=== PATIENT | male | born 1995 | race Hispanic/Latino ===

== ENCOUNTER 2020-02-22 12:34 | Emergency (ER) | payer SELFPAY ==
[2020-02-22] MEDS ORDERED: LIDOCAINE 1% MPF 5 ML VIAL ONE (13:24)
[2020-02-22] MEDS ORDERED: TETANUS & DIPHTHERIA TOX,ADULT 0.5 ML VIAL ONE (13:25)
--- NOTE | 2020-02-22 14:37 | RAD REPORT ---
EXAM DESCRIPTION: RAD - Nasal Bones - 02/22/2020 2:31 pm CLINICAL HISTORY: Nasal pain status post trauma FINDINGS: No fracture seen
--- NOTE | 2020-02-22 14:54 | ER ---
Nurse's Notes [facility] Name: Travis Negrete Age: 24 yrs Sex: Male : 1995 Arrival Date: 02/22/2020 Time: 12:37 Bed 24 Private MD: Diagnosis: Laceration without foreign body of nose Presentation: 02/21 12:44 Chief complaint: Patient states: <1 cm laceration to bridge of nose. 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 Bleeding controlled, no LOC. Coronavirus screen: Client denies travel out of the [place] in the last 14 days. At this time, the client does not indicate any symptoms associated with coronavirus-19. Ebola Screen: Patient denies travel to an Ebola-affected area in the 21 days before illness onset. Complicating Factors: There are no complicating factors for this patient. Initial Sepsis Screen: Does the patient meet any 2 criteria? No. Patient's initial sepsis screen is negative. Risk Assessment: Do you want to hurt yourself or someone else? Patient reports no desire to harm self or others. Onset of symptoms was February 22, 2020. 12:44 Method Of Arrival: Ambulatory ll1 12:44 Acuity: NAPOLEON 4 ll1 Historical: - Allergies: 12:46 No Known Allergies; ll1 - PSHx: 12:46 None; ll1 - Immunization history:: Last tetanus immunization: unknown. - Social history:: Smoking status: Patient denies any tobacco usage or history of. Patient uses alcohol, only on a social basis. Patient/guardian denies using street drugs. Screenin:13 Abuse screen: Denies threats or abuse. Denies injuries from another. Nutritional hb screening: No deficits noted. Tuberculosis screening: No symptoms or risk factors identified. Fall Risk None identified. Assessment: 13:02 General: Appears in no apparent distress. Behavior is calm, cooperative. Pain: Pain hb currently is 4 out of 10 on a pain scale. Neuro: Level of Consciousness is awake, alert, obeys commands, Oriented to person, place, time, situation. Cardiovascular: Capillary refill < 3 seconds Patient's skin is warm and dry. Respiratory: Respiratory effort is even, unlabored, Respiratory pattern is regular, symmetrical. GI: No signs and/or symptoms were reported involving the gastrointestinal system. : No signs and/or symptoms were reported regarding the genitourinary system. EENT: No signs and/or symptoms were reported regarding the EENT system. Derm: Skin is pink, warm \T\ dry. Musculoskeletal: No signs and/or symptoms reported regarding the musculoskeletal system. Injury Description: Laceration sustained to bridge of nose is <0.5 cm, bleeding controlled. 14:00 Reassessment: Patient appears in no apparent distress at this time. Patient and/or hb family updated on plan of care and expected duration. Pain level reassessed. Patient is alert, oriented x 3, equal unlabored respirations, skin warm/dry/pink. 15:00 Reassessment: Patient appears in no apparent distress at this time. Patient and/or hb family updated on plan of care and expected duration. Pain level reassessed. Patient is alert, oriented x 3, equal unlabored respirations, skin warm/dry/pink. Vital Signs: 12:44 BP 125 / 80; Pulse 60; Resp 16; Temp 98.9; Pulse Ox 100% ; Pain 4/10; ll1 14:30 BP 126 / 76; Pulse 61; Resp 16; Pulse Ox 100% on R/A; hb ED Course: 12:37 Patient arrived in ED. mr 12:45 Didier Aguilar PA is PHCP. cp 12:45 Donal Siddiqui MD is Attending Physician. cp 12:45 Triage completed. ll1 12:46 Arm band placed on Patient placed in an exam room, on a stretcher. ll1 13:13 Patient has correct armband on for positive identification. Bed in low position. Call hb light in reach. 13:17 Nimo Coleman, CINTHIA is Primary Nurse. ll1 14:27 XRAY Nasal Bones In Process Unspecified. EDMS 15:02 No provider procedures requiring assistance completed. Patient did not have IV access hb during this emergency room visit. 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 Exp: ll1 08/14/2021. Lot #: [id number]. } Route: IM; Site: left deltoid; Outcome: 14:54 Discharge ordered by . cp 15:14 Patient left the ED. hb Signatures: Dispatcher [employer] [facility] Francoise Barnes mr Page, DidierSAADIA vigil cp, Heather, RN RN hb Nimo Coleman, RN RN ll1
--- NOTE | 2020-02-22 14:54 | EDPHYS ---
Physician Documentation [facility] Name: Travis Negrete Age: 24 yrs Sex: Male : 1995 Arrival Date: 02/22/2020 Time: 12:37 Bed 24 Private MD: ED Physician Donal Siddiqui HPI: 02/21 13:15 This 24 yrs old Male presents to ER via Ambulatory with complaints of cp Laceration To Nose. 13:15 The patient has a laceration occurred at a friend's home, The injury was accidental. cp The laceration(s) is(are) located on the nose. 13:15 Onset: The symptoms/episode began/occurred 1 hour(s) ago. cp 13:15 Associated signs and symptoms: Pertinent negatives: dizziness, heavy bleeding, loss of cp consciousness, suspected foreign body. Patient reports nose was struck by piece of metal . Historical: - Allergies: 12:46 No Known Allergies; ll1 - PSHx: 12:46 None; ll1 - Immunization history:: Last tetanus immunization: unknown. - Social history:: Smoking status: Patient denies any tobacco usage or history of. Patient uses alcohol, only on a social basis. Patient/guardian denies using street drugs. ROS: 13:20 Constitutional: Negative for chills, fever. cp 13:20 Neck: Negative for pain with movement, pain at rest, stiffness. cp 13:20 Skin: Positive for laceration(s), of the bridge of nose. 13:20 Neuro: Negative for headache, loss of consciousness. 13:20 All other systems are negative. Exam: 13:25 Constitutional: The patient appears in no acute distress, alert, awake, comfortable, cp well developed, well nourished. 13:25 Head/face: Noted is a laceration(s), that is linear, of the bridge of nose, swelling, cp that is mild, of the nose, tenderness, that is mild, of the nose, Sinus tenderness, is not appreciated. 13:25 Eyes: Periorbital structures: appear normal, Pupils: equal, round, and reactive to light and accomodation, Extraocular movements: intact throughout, Conjunctiva: normal, no exudate, no injection, Lids and lashes: appear normal, bilaterally. 13:25 ENT: External ear(s): are unremarkable, Nose: Nasal septum: is midline, no septal hematoma appreciated, bleeding, is not appreciated, Mouth: Lips: moist, Oral mucosa: moist, Posterior pharynx: Airway: no evidence of obstruction, patent, Dental exam: no acute changes. 13:25 Neck: C-spine: vertebral tenderness, is not appreciated, crepitus, is not appreciated, ROM/movement: pain, is not appreciated, limited range of motion, is not appreciated. 13:25 Chest/axilla: Inspection: normal. 13:25 Cardiovascular: Rate: normal. 13:25 Respiratory: the patient does not display signs of respiratory distress, Respirations: normal. 13:25 Skin: injury, laceration(s), the wound is approximately 2 cm(s), of the bridge of nose, that can be described as clean, no foreign body, linear, with mild bleeding. 13:25 Neuro: Orientation: to person, place \T\ time. Mentation: is normal, Motor: moves all fours, strength is normal, Gait: is steady. Vital Signs: 12:44 BP 125 / 80; Pulse 60; Resp 16; Temp 98.9; Pulse Ox 100% ; Pain 4/10; ll1 14:30 BP 126 / 76; Pulse 61; Resp 16; Pulse Ox 100% on R/A; hb Laceration: 14:55 Wound Repair of 2cm ( 0.8in ) subcutaneous laceration to bridge of nose. Linear cp shaped.. Distal neuro/vascular/tendon intact. Anesthesia: Local anesthetic administered with 3 mls of 1% lidocaine. Wound prep: Simple cleansing by nurse. Skin closed with 3 6-0 Prolene using simple sutures and sterile technique. Dressed with Bacitracin, bandaid. Patient tolerated well. MDM: 13:07 Patient medically screened. cp 14:54 Data reviewed: vital signs, nurses notes, radiologic studies, plain films. cp 14:54 Differential diagnosis: superficial laceration, nasal bone fracture. Counseling: I had cp a detailed discussion with the patient and/or guardian regarding: the historical points, exam findings, and any diagnostic results supporting the discharge/admit diagnosis, radiology results, to return to the emergency department if symptoms worsen or persist or if there are any questions or concerns that arise at home. Response to treatment: the patient's symptoms have markedly improved after treatment. 02/21 13:09 Order name: XRAY Nasal Bones; Complete Time: 14:53 02/21 14:53 Interpretation: Report reviewed. 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 Exp: ll1 08/14/2021. Lot #: [id number]. } Route: IM; Site: left deltoid; Disposition: 15:15 Chart complete. Disposition: 02/22/20 14:54 Discharged to Home. Impression: Laceration without foreign body of nose. - Condition is Stable. - Discharge Instructions: Facial Laceration. - Medication Reconciliation Form, Thank You Letter, Antibiotic Education, Prescription Opioid Use form. - Follow up: Private Physician; When: 1 week; Reason: Staple/Suture removal. - Problem is new. - Symptoms have improved. Addendum: 02/23/2020 19:47 Co-signature as Attending Physician, Donal Siddiqui MD I agree with the assessment and k dr plan of care. Signatures: Dispatcher [employer] EDKS Donal Siddiqui MD MD [facility] Didier Aguilar PA PA Machelle Coffey RN RN Nimo Coleman RN RN ll1 Corrections: (The following items were deleted from the chart) 02/21 15:14 14:54 02/22/2020 14:54 Discharged to Home. Impression: Laceration without foreign body hb of nose. Condition is Stable. Forms are Medication Reconciliation Form, Thank You Letter, Antibiotic Education, Prescription Opioid Use. Follow up: Private Physician; When: 1 week; Reason: Staple/Suture removal. Problem is new. Symptoms have improved. cp
== END 2020-02-22 15:14 | disposition home or self-care (01) ==
LOC: ER 12:34
PROC: 0JQ10ZZ Repair Face Subcutaneous Tissue and Fascia, Open Approach (ICD-10-PCS; principal; 2020-02-22)
DX: S01.21XA Laceration without foreign body of nose, initial encounter (principal); W22.8XXA Striking against or struck by other objects, initial encounter; Y93.9 Activity, unspecified; Y92.89 Other specified places as the place of occurrence of the external cause; Z23 Encounter for immunization
CPT/HCPCS: 70160; 90471; 90714; 99283

== ENCOUNTER 2020-03-01 10:11 | Emergency (ER) | payer SELFPAY ==
--- NOTE | 2020-03-01 10:25 | EDPHYS ---
Physician Documentation [facility] Name: Travis Negrete Age: 24 yrs Sex: Male : 1995 Arrival Date: 03/01/2020 Time: 10:13 Bed 20 Private MD: ED Physician Elio Baptiste HPI: 03/01 10:18 This 24 yrs old Male presents to ER via Ambulatory with complaints of Suture jmm Removal. 10:18 The patient has sutures on the nose. Sutures/elsa progress: The patient has no jmm c/o's. The wound is well-healing with no redness, swelling, discharge, or dehiscence reported. The patient has experienced a previous episode. Historical: - Allergies: 10:19 No Known Allergies; iw - Home Meds: 10:19 None [Active]; iw - PMHx: 10:19 None; iw - PSHx: 10:19 None; iw - Immunization history:: Adult Immunizations. - Social history:: Smoking status: . ROS: 10:18 Constitutional: Negative for fever, chills, and weight loss, Cardiovascular: Negative jmm for chest pain, palpitations, and edema, Respiratory: Negative for shortness of breath, cough, wheezing, and pleuritic chest pain, Skin: Negative for injury, rash, and discoloration. 10:18 All other systems are negative. Exam: 10:18 Constitutional: This is a well developed, well nourished patient who is awake, alert, jmm and in no acute distress. Head/Face: atraumatic. Eyes: EOMI, no conjunctival erythema appreciated 10:18 Neck: Trachea midline, Supple Chest/axilla: Normal chest wall appearance and motion. Cardiovascular: Regular rate and rhythm. No edema appreciated Respiratory: Normal respirations, no respiratory distress appreciated Abdomen/GI: Non distended, soft Back: Normal ROM Skin: General appearance color normal MS/ Extremity: Moves all extremities, no obvious deformities appreciated, no edema noted to the lower extremities Neuro: Awake and alert, normal gait Psych: Behavior is normal, Mood is normal, Patient is cooperative and pleasant 10:18 ENT: 3 sutures noted to the bridge of the nose. skin appears well healed. no erythema, purulent drainage appreciated. Vital Signs: 10:18 BP 122 / 74; Pulse 71; Resp 16; Temp 98.0; Pulse Ox 97% on R/A; iw Procedures: 10:24 Suture/Staple removal: Removed 3 sutures, from nose, site appears well healed, Patient nela tolerated well. MDM: 10:18 Patient medically screened. [facility] 10:23 Data reviewed: vital signs, nurses notes. Counseling: I had a detailed discussion with nela the patient and/or guardian regarding: the historical points, exam findings, and any diagnostic results supporting the discharge/admit diagnosis, the need for outpatient follow up, to return to the emergency department if symptoms worsen or persist or if there are any questions or concerns that arise at home. Administered Medications: No medications were administered Disposition: 15:51 Co-signature as Attending Physician, Elio Baptiste MD. rn Disposition: 03/01/20 10:24 Discharged to Home. Impression: Encounter for removal of sutures. - Condition is Stable. - Discharge Instructions: Suture Removal, Care After. - Medication Reconciliation Form, Thank You Letter, Antibiotic Education, Prescription Opioid Use form. - Follow up: Private Physician; When: 2 - 3 days; Reason: Recheck today's complaints, Continuance of care, Re-evaluation by your physician. Signatures: Amanuel Joiner PA PA jmm Williams, Irene, RN RN Elio Mojica MD MD internet marketing consultant: (The following items were deleted from the chart) 10:38 10:24 03/01/2020 10:24 Discharged to Home. Impression: Encounter for removal of iw sutures. Condition is Stable. Forms are Medication Reconciliation Form, Thank You Letter, Antibiotic Education, Prescription Opioid Use. Follow up: Private Physician; When: 2 - 3 days; Reason: Recheck today's complaints, Continuance of care, Re-evaluation by your physician. [facility]
--- NOTE | 2020-03-01 10:25 | ER ---
Nurse's Notes [facility] Name: Travis Negrete Age: 24 yrs Sex: Male : 1995 Arrival Date: 03/01/2020 Time: 10:13 Bed 20 Private MD: Diagnosis: Encounter for removal of sutures Presentation: 03/01 10:18 Chief complaint: Patient states: needs sutures removed from bridge of nose, happened iw last week. Coronavirus screen: At this time, the client does not indicate any symptoms associated with coronavirus-19. Ebola Screen: Patient negative for fever greater than or equal to 101.5 degrees Fahrenheit, and additional compatible Ebola Virus Disease symptoms Patient denies exposure to infectious person. Patient denies travel to an Ebola-affected area in the 21 days before illness onset. No symptoms or risks identified at this time. Initial Sepsis Screen: Does the patient meet any 2 criteria? No. Patient's initial sepsis screen is negative. Does the patient have a suspected source of infection? No. Patient's initial sepsis screen is negative. Risk Assessment: Do you want to hurt yourself or someone else? Patient reports no desire to harm self or others. Onset of symptoms was February 21, 2020. 10:18 Method Of Arrival: Ambulatory iw 10:18 Acuity: NAPO[place]ON 5 iw Triage Assessment: 10:25 General: Appears in no apparent distress. Behavior is calm, cooperative. iw Historical: - Allergies: 10:19 No Known Allergies; iw - Home Meds: 10:19 None [Active]; iw - PMHx: 10:19 None; iw - PSHx: 10:19 None; iw - Immunization history:: Adult Immunizations. - Social history:: Smoking status: . Screenin:25 Abuse screen: Denies threats or abuse. Denies injuries from another. Nutritional iw screening: No deficits noted. Tuberculosis screening: No symptoms or risk factors identified. Fall Risk None identified. Assessment: 10:25 General: Appears in no apparent distress. comfortable, Behavior is calm, cooperative. iw Pain: Denies pain. Neuro: Level of Consciousness is awake, alert, obeys commands, Oriented to person, place, time, situation, Moves all extremities. Full function. Respiratory: Respiratory effort is even, unlabored, Respiratory pattern is regular. Derm: Skin. Musculoskeletal: Range of motion: intact in all extremities. Vital Signs: 10:18 BP 122 / 74; Pulse 71; Resp 16; Temp 98.0; Pulse Ox 97% on R/A; iw ED Course: 10:13 Patient arrived in ED. ag5 10:15 Amanuel Joiner PA is PHCP. nela 10:15 Elio Baptiste MD is Attending Physician. nela 10:19 Triage completed. iw 10:19 Arm band placed on. iw 10:25 Patient has correct armband on for positive identification. iw 10:36 No provider procedures requiring assistance completed. Patient did not have IV access iw during this emergency room visit. 10:38 Xenia Edgar, RN is Primary Nurse. iw Administered Medications: No medications were administered Outcome: 10:24 Discharge ordered by . [facility] 10:37 Discharged to home ambulatory. iw 10:37 Condition: good 10:37 Discharge instructions given to patient, Instructed on discharge instructions, follow up and referral plans. 10:37 No charge visit due to suture removal. 10:38 Patient left the ED. iw Signatures: Amanuel Joiner PA PA jmm Williams, Irene, RN RN KylahEdgar ag5
--- OUTSIDE RECORDS SUMMARY | 2020-03-01 10:35 | XMS REPORT | Continuity of Care Document ---
:1995 Author Organization [facility] t Address [address] [place] [address] Dr. Dalton [address] [place] [id number] Care Team Providers Name Role Phone Unavailable Unavailable Unavailable Problems This patient has no known problems. Allergies, Adverse Reactions, Alerts This patient has no known allergies or adverse reactions. Medications This patient has no known medications. Procedures This patient has no known procedures. Encounters Start End Encounter Admission Attending Care Care Encounter Source Date/Time Date/Time Type Type Clinicians Facility Department ID 2018-10-16 2018-10-16 Emergency E [id number] 05:39:00 05:39:00 Results This patient has no known results.
[2020-03-03 16:57] VITALS: BP 122/74; TEMP 98; O2SAT 97
== END 2020-03-01 10:38 | disposition home or self-care (01) ==
LOC: ER 10:11
DX: Z48.02 Encounter for removal of sutures (principal)